=== PATIENT | female | born 1940 | race Native Hawaiian/Other Pacific Islander ===

== ENCOUNTER 2016-05-02 16:20 | Outpatient (CLI) | payer OTHER ==
[2016-05-02 17:11] LABS: POTASSIUM 4.5 mmol/L (3.6-5.2); SODIUM 138 mmol/L (136-145)
== END 2016-05-02 23:40 | disposition home or self-care (01) ==
LOC: LAB 16:20
PROVIDERS: Family Medicine
DX: N39.0 Urinary tract infection, site not specified (principal); M54.89 Other dorsalgia; E78.4 Other hyperlipidemia; I10 Essential (primary) hypertension
CPT/HCPCS: 80053; 81000; 82150; 82607; 83690

== ENCOUNTER 2016-05-09 10:41 | Outpatient (CLI) | payer OTHER | END 2016-05-09 19:45 | disposition home or self-care (01) | LOC: RAD 10:41 | DX: N39.0 Urinary tract infection, site not specified (principal); M54.89 Other dorsalgia; R10.84 Generalized abdominal pain ==

== ENCOUNTER 2017-03-08 10:43 | Outpatient (CLI) | payer OTHER ==
[2017-03-08 12:07] LABS: PLATELET COUNT 229 K/uL (152-353)
[2017-03-08 12:24] LABS: POTASSIUM 3.9 mmol/L (3.6-5.2)
== END 2017-03-08 12:00 | disposition home or self-care (01) ==
LOC: LABW 10:43
PROVIDERS: Family Medicine
DX: M54.89 Other dorsalgia (principal); Z87.01 Personal history of pneumonia (recurrent); R05 Cough; R53.1 Weakness
CPT/HCPCS: 36415; 80053; 81000; 82306; 83735; 85027

== ENCOUNTER 2017-08-22 08:43 | Outpatient (CLI) | payer OTHER | END 2017-08-22 21:50 | disposition home or self-care (01) | LOC: US 08:43 | DX: R42 Dizziness and giddiness (principal) ==

== ENCOUNTER 2018-01-28 09:56 | Outpatient (CLI) | payer OTHER | END 2018-01-28 19:52 | disposition home or self-care (01) | LOC: LABW 09:56 | DX: Z79.899 Other long term (current) drug therapy (principal); Z13.1 Encounter for screening for diabetes mellitus | CPT/HCPCS: 36415; 83036 ==

== ENCOUNTER 2018-07-15 08:51 | Outpatient (CLI) | payer OTHER ==
[2018-07-15 09:09] LABS: PLATELET COUNT 189 K/uL (152-353)
[2018-07-15 10:20] LABS: POTASSIUM 4.3 mmol/L (3.6-5.2)
== END 2018-07-15 22:56 | disposition home or self-care (01) ==
LOC: LABW 08:51
PROVIDERS: Family Medicine
DX: Z13.1 Encounter for screening for diabetes mellitus (principal); I10 Essential (primary) hypertension; E78.5 Hyperlipidemia, unspecified; M54.15 Radiculopathy, thoracolumbar region; E55.9 Vitamin D deficiency, unspecified; Z79.899 Other long term (current) drug therapy
CPT/HCPCS: 36415; 80053; 80061; 81000; 82306; 83036; 84439; 84443; 84550; 85027

== ENCOUNTER 2018-09-27 09:46 | Outpatient (CLI) | payer OTHER | END 2018-09-27 23:32 | disposition home or self-care (01) | LOC: RAD 09:46 | DX: R51 Headache (principal) ==

== ENCOUNTER 2018-10-25 08:41 | Outpatient (CLI) | payer OTHER ==
[2018-10-25 09:18] LABS: POTASSIUM 3.8 mmol/L (3.6-5.2)
[2018-10-25 10:24] LABS: PLATELET COUNT 212 K/uL (152-353)
== END 2018-10-25 23:41 | disposition home or self-care (01) ==
LOC: LABW 08:41
PROVIDERS: Nurse Practitioner Family
DX: L93.1 Subacute cutaneous lupus erythematosus (principal); M35.01 Sjogren syndrome with keratoconjunctivitis; M45.4 Ankylosing spondylitis of thoracic region; R76.0 Raised antibody titer; Z79.899 Other long term (current) drug therapy
CPT/HCPCS: 36415; 80053; 81000; 85027; 85651; 86140; 86160; 86225

== ENCOUNTER 2019-02-11 09:30 | Outpatient (CLI) | payer OTHER | END 2019-02-11 20:33 | disposition home or self-care (01) | LOC: RAD 09:30 | DX: L93.1 Subacute cutaneous lupus erythematosus (principal); M35.01 Sjogren syndrome with keratoconjunctivitis; M45.4 Ankylosing spondylitis of thoracic region; R76.0 Raised antibody titer; Z79.899 Other long term (current) drug therapy ==

== ENCOUNTER 2019-12-12 08:42 | Outpatient (CLI) | payer OTHER | END 2019-12-12 20:05 | disposition home or self-care (01) | LOC: LAB 08:42 | DX: Z20.828 Contact with and (suspected) exposure to other viral communicable diseases (principal) | CPT/HCPCS: 87635; G2023; U0003 ==

== ENCOUNTER 2020-05-25 10:48 | Outpatient (CLI) | payer OTHER | END 2020-05-25 21:06 | disposition home or self-care (01) | LOC: RAD 10:48 | PROVIDERS: ATTEND Nurse Practitioner Family | DX: M35.01 Sjogren syndrome with keratoconjunctivitis (principal) ==

== ENCOUNTER 2020-06-08 08:46 | Outpatient (CLI) | payer OTHER | END 2020-06-08 19:47 | disposition home or self-care (01) | LOC: RESP 08:46 | PROVIDERS: ATTEND Family Medicine | DX: R01.1 Cardiac murmur, unspecified (principal); I10 Essential (primary) hypertension; R53.83 Other fatigue ==

== ENCOUNTER 2020-07-19 15:16 | Outpatient (CLI) | payer OTHER | END 2020-07-19 20:53 | disposition home or self-care (01) | LOC: RAD 15:16 | PROVIDERS: ATTEND Family Medicine | DX: M25.561 Pain in right knee (principal); M79.604 Pain in right leg ==

== ENCOUNTER 2022-03-24 08:38 | Outpatient (CLI) | payer OTHER | END 2022-03-24 18:56 | disposition home or self-care (01) | LOC: CT 08:38 | PROVIDERS: ATTEND Nurse Practitioner Family | DX: M35.01 Sjogren syndrome with keratoconjunctivitis (principal); R06.02 Shortness of breath ==

== ENCOUNTER 2022-07-24 08:53 | Outpatient (CLI) | payer OTHER | END 2022-07-24 21:06 | disposition home or self-care (01) | LOC: RAD 08:53 | PROVIDERS: ATTEND Family Medicine | DX: Z13.820 Encounter for screening for osteoporosis (principal); N95.8 Other specified menopausal and perimenopausal disorders ==

== ENCOUNTER 2022-11-29 10:11 | Outpatient (CLI) | payer OTHER ==
[2022-11-29 11:22] LABS: PLATELET COUNT 185 K/uL (152-353)
[2022-11-29 11:58] LABS: POTASSIUM 4.5 mmol/L (3.6-5.2)
== END 2022-11-29 21:20 | disposition home or self-care (01) ==
LOC: RAD 10:11
PROVIDERS: ATTEND Nurse Practitioner Family
DX: M35.05 Sjogren syndrome with inflammatory arthritis (principal); M45.4 Ankylosing spondylitis of thoracic region; R06.02 Shortness of breath; R76.0 Raised antibody titer; Z79.899 Other long term (current) drug therapy; E55.9 Vitamin D deficiency, unspecified; L93.1 Subacute cutaneous lupus erythematosus
CPT/HCPCS: 36415; 80053; 81000; 82306; 85027; 85652; 86140; 86160; 86225; 87086; 87088